=== PATIENT | male | born 1995 | race Two or more races ===

== ENCOUNTER 2017-10-08 09:31 | Emergency (ER) | payer OTHER ==
[~2017-10-08] VITALS: Ht 175.3 cm; Wt 72.6 kg
[2017-10-08] MEDS ORDERED: IBUPROFEN600 MG ORAL (10:00)
[2017-10-08 10:23] VITALS: BP 111/69
[2017-10-08 10:25] VITALS: BP 111/69
--- NOTE | 2017-10-08 11:43 | Emergency Room Report ---
History of Present Illness General Chief Complaint: Multiple Trauma/Fall Source: Patient Present Illness HPI 22-year-old male presenting after accident at work. He states that he was cutting food crates out of the fridge, they fell onto him, denies any head trauma or LOC. Sustained bruises on his left arm. Now complaining of pain to his left arm however he is able to move it without difficulty. Has not taken any medications no other complaints Allergies: Coded Allergies: CEFTRIAXONE (Verified Allergy, Unknown, 10/08/17) rash, swelling Uncoded Allergies: ERYTHROMYCIN (Allergy, Unknown, 10/08/17) Rash, swelling Patient History Past Medical History: see triage record Past Surgical History: none Pertinent Family History: none Reviewed Nursing Documentation: PMH: Agreed, PSxH: Agreed Nursing Documentation-PMH Past Medical History: No Stated History Review of Systems All Other Systems: negative except mentioned in HPI Physical Exam Vital Signs Date Time Temp Pulse Resp B/P (MAP) Pulse Ox O2 Delivery O2 Flow Rate FiO2 10/08/17 09:44 98.3 67 16 99/51 96 Room Air 98.2 Sp02 EP Interpretation: reviewed, normal General Appearance: normal inspection, well appearing, no apparent distress, alert, GCS 15, non-toxic Head: normocephalic, atraumatic Eyes: bilateral eye normal inspection, bilateral eye PERRL, bilateral eye EOMI ENT: normal ENT inspection, normal pharynx, normal voice, moist mucus membranes Neck: normal inspection, full range of motion, supple Respiratory: normal inspection, lungs clear, normal breath sounds, no respiratory distress, no retraction, no wheezing, speaking full sentences, chest symmetrical Cardiovascular #1: normal inspection, regular rate, rhythm, no edema, normal capillary refill Cardiovascular #2: 2+ radial (R), 2+ radial (L) Gastrointestinal: normal inspection, non tender, soft, non-distended, no guarding Genitourinary: no CVA tenderness Musculoskeletal: other - Ecchymosis noted on left arm, humerus as well as forearm. No gross bony deformities. Patient has full range of motion of all extremities Neurologic: normal inspection, alert, oriented x3, responsive, motor strength/ tone normal, sensory intact, normal gait, speech normal Psychiatric: normal inspection, judgement/insight normal, memory normal Skin: normal inspection, normal color, no rash, warm/dry, well hydrated, normal turgor Medical Decision Making Diagnostic Impression: Primary Impression: Traumatic contusion ER Course 22-year-old male with bruising to her left arm after accident at work DDX: Ecchymosis and contusion, no concern for fracture patient is full range of motion all extremities Plan: Pain control with motrin ER course: Patient reports improvement of pain with motrin. Disposition: Patient is to be discharged home with a prescription of motrin. Patient educated to rest, ice, and elevate extremity and to avoid vigorous activity. Strict precautions discussed with patient on when to return to the emergency room including increased redness or swelling joints, increased pain/swelling of extremity, fever or chills, which could indicate severe illness. Please note that this Emergency Department Report was dictated using [employer] glue operator technology software, occasionally this can lead to erroneous entry secondary to interpretation by the dictation equipment. Last Vital Signs Date Time Temp Pulse Resp B/P (MAP) Pulse Ox O2 Delivery O2 Flow Rate FiO2 10/08/17 10:25 98.0 69 17 111/69 97 Room Air 98.0 Disposition: HOME, SELF-CARE Condition: Improved Scripts Ibuprofen* (MOTRIN*) 600 Mg Tablet 600 MG ORAL Q6H Y for For Pain, #30 TAB Prov: Allen Lopes M.D. 10/08/17 Referrals: NOT CHOSEN IPA/,REFERRING (PCP) Patient Instructions: Contusion [id number] Allen Lopes M.D. Oct 08, 2017 11:43
== END 2017-10-08 10:35 | disposition home or self-care (01) ==
LOC: EMR 10:31
DX: S40.022A Contusion of left upper arm, initial encounter (principal); W20.8XXA Other cause of strike by thrown, projected or falling object, initial encounter; Y92.511 Restaurant or cafe as the place of occurrence of the external cause; Y99.0 Civilian activity done for income or pay
CPT/HCPCS: 99283